=== PATIENT | female | born 1965 | race Caucasian/White ===

== ENCOUNTER 2016-05-04 12:07 | Emergency (ER) | payer BC ==
[~2016-05-04] VITALS: Ht 172.7 cm; Wt 77.1 kg
[2016-05-04 13:40] LABS: Basophils # (auto) 0.1 uL; Basophils % (auto) 0.9 % (0.0-2.0); Eosinophils # (auto) 0.4 uL; Eosinophils % (auto) 4.5 % (0.0-7.0); Hematocrit 42.7 % (36.0-46.0); Hemoglobin 13.9 g/dL (12.2-16.2); Lymphocytes # (auto) 1.9 uL; Lymphocytes % (auto) 21.9 % (10.0-50.0); Mean Corpuscular Hemoglobin 30.6 pg (28.0-32.0); Mean Corpuscular Hgb Conc. 32.5 g/dL (32.0-36.0); Mean Corpuscular Volume 94.2 fL (80.0-100.0); Mean Platelet Volume 8.5 fL (7.4-10.4); Monocytes # (auto) 0.5 uL; Monocytes % (auto) 5.8 % (0.0-12.0); Neutrophils # (auto) 5.8 uL; Neutrophils % (auto) 66.9 % (37.0-80.0); Platelet Count (auto) 217 10^3/uL (140-450); Red Cell Distribution Width 13.5 % (11.6-16.0); White Blood Cell 8.6 10^3/uL (4.4-10.8)
[2016-05-04] MEDS ORDERED: MORPHINE SULFATE 4 MG/ML SYRG IV ONE (13:45)
[2016-05-04] MEDS ORDERED: SODIUM CHLORIDE 0.9% 1,000 ML IV ONE (13:45)
[2016-05-04] MEDS ORDERED: ONDANSETRON HCL 4 MG/2 ML VIAL IV ONE (13:45)
[2016-05-04 13:58] LABS: Albumin 3.6 g/dL (3.4-5.0); BUN/Creatinine Ratio 13.2; Bilirubin, Total 0.3 mg/dL (0.2-1.0); Calcium 8.9 mg/dL (8.5-10.1); Magnesium 2.2 mg/dL (1.6-2.6); Potassium 4.2 mmol/L (3.5-5.1); Total Protein 6.6 g/dL (6.4-8.2)
[2016-05-04 16:14] VITALS: BP 129/71
== END 2016-05-04 16:53 | disposition home or self-care (01) ==
LOC: ER 12:29
DX: R10.9 Unspecified abdominal pain (principal); Z88.6 Allergy status to analgesic agent
CPT/HCPCS: 36415; 74176; 80053; 82150; 83690; 83735; 85025; 96361; 96374; 96375; 99285; J2270; J2405; J7030

== ENCOUNTER 2016-05-11 17:08 | Emergency (ER) | payer BC ==
[~2016-05-11] VITALS: Ht 172.7 cm; Wt 77.1 kg
[2016-05-11 17:51] VITALS: BP 139/80
[2016-05-11 18:39] LABS: Basophils # (auto) 0.1 uL; Basophils % (auto) 0.9 % (0.0-2.0); Eosinophils # (auto) 0.6 uL; Eosinophils % (auto) 5.2 % (0.0-7.0); Hematocrit 46.3 % (36.0-46.0); Hemoglobin 15.1 g/dL (12.2-16.2); Lymphocytes # (auto) 2.8 uL; Lymphocytes % (auto) 25.5 % (10.0-50.0); Mean Corpuscular Hemoglobin 30.8 pg (28.0-32.0); Mean Corpuscular Hgb Conc. 32.7 g/dL (32.0-36.0); Mean Corpuscular Volume 94.2 fL (80.0-100.0); Mean Platelet Volume 8.3 fL (7.4-10.4); Monocytes # (auto) 0.7 uL; Neutrophils # (auto) 6.9 uL; Neutrophils % (auto) 62.4 % (37.0-80.0); Platelet Count (auto) 231 10^3/uL (140-450); Red Cell Distribution Width 13.6 % (11.6-16.0); White Blood Cell 11.1 10^3/uL (4.4-10.8)
[2016-05-11 19:05] LABS: Albumin 3.7 g/dL (3.4-5.0); BUN/Creatinine Ratio 14.6; Calcium 8.6 mg/dL (8.5-10.1); Potassium 3.9 mmol/L (3.5-5.1)
[2016-05-11 19:07] LABS: Bilirubin, Total 0.3 mg/dL (0.2-1.0); Total Protein 7.3 g/dL (6.4-8.2)
== END 2016-05-11 23:30 | disposition left against medical advice (07) ==
LOC: ER 17:18
DX: K59.00 Constipation, unspecified (principal); Z53.21 Procedure and treatment not carried out due to patient leaving prior to being seen by health care provider
CPT/HCPCS: 36415; 74000; 80053; 85025